=== PATIENT | female | born 1960 | race Caucasian/White ===

== ENCOUNTER → 2021-03-18 09:58 | Outpatient (CLI) | payer OTHER, SELFPAY ==
[2021-03-18 10:42] LABS: Hemoglobin A1C% w Est Avg Glu 9.8 % (4.0-6.0)
[2021-03-18 10:56] LABS: Alanine Aminotransferase 34 IU/L (<35); Albumin Globulin Ratio 1.3 (1.0-2.8); Alkaline Phosphatase 71 U/L (38-126); Aspartate Aminotransferase 27 IU/L (14-36); BUN Creatinine Ratio 25.5 (6-22); Bilirubin Total 0.6 mg/dL (0.2-1.3); Blood Urea Nitrogen 12 mg/dL (7-17); Calcium 9.6 mg/dL (8.4-10.2); Carbon Dioxide 24 mmol/L (22-32); Chloride 104 mmol/L (98-107); Cholesterol 179 mg/dL (140-199); Estimated Glomerular Filt Rate > 60.0 mL/min (>60); Globulin 3.1 g/dL (1.7-4.1); Glucose 182 mg/dL (80-110); HDL Cholesterol 54 mg/dL (40-60); HEMOLYSIS < 15 (0-50); LDL Cholesterol Calculated 79 mg/dL (<100); Potassium 4.5 mmol/L (3.4-5.1); Sodium 136 mmol/L (137-145); Total Protein 7.1 g/dL (6.3-8.2); Triglycerides 230 mg/dL (35-150)
[2021-03-18 10:59] LABS: Creatinine Urine Random 129.9 mg/dL
[2021-03-18 11:01] LABS: Microalbumi Creatinin Ratio Ur 8.4 ug/mg CR (<30); Microalbumin Urine Random 1.1 mg/dL (0-1.6)
[2021-03-18 11:31] LABS: Thyroid Stimulating Hormone < 0.015 uIU/mL (0.47-4.68)
== END ==
PROVIDERS: PCP Family Medicine; Referring Provider Family Medicine; Visit Provider Family Medicine
DX: E11.9 Type 2 diabetes mellitus without complications (principal); E89.0 Postprocedural hypothyroidism
CPT/HCPCS: 36415; 80053; 80061; 82043; 82570; 83036; 84443

== ENCOUNTER → 2021-06-15 08:06 | Outpatient (CLI) | payer OTHER, SELFPAY ==
[2021-06-15 09:20] LABS: Hemoglobin A1C% w Est Avg Glu 10.3 % (4.0-6.0)
[2021-06-15 09:56] LABS: TSH w/ Reflex to FT4 0.28 uIU/mL (0.47-4.68)
[2021-06-15 10:20] LABS: Free T4, Direct Thyroxine 0.89 ng/dL (0.78-2.19)
== END ==
PROVIDERS: PCP Family Medicine; Referring Provider Family Medicine; Visit Provider Family Medicine
DX: E89.0 Postprocedural hypothyroidism (principal); E11.9 Type 2 diabetes mellitus without complications
CPT/HCPCS: 36415; 83036; 84439; 84443

== ENCOUNTER → 2021-09-14 09:36 | Outpatient (CLI) | payer OTHER, SELFPAY ==
[2021-09-14 11:13] LABS: Hemoglobin A1C% w Est Avg Glu 10.2 % (4.0-6.0)
[2021-09-14 11:40] LABS: Thyroid Stimulating Hormone 1.14 uIU/mL (0.47-4.68)
== END ==
PROVIDERS: PCP Family Medicine; Referring Provider Family Medicine; Visit Provider Family Medicine
DX: E03.9 Hypothyroidism, unspecified (principal); E11.9 Type 2 diabetes mellitus without complications
CPT/HCPCS: 36415; 83036; 84443

== ENCOUNTER → 2021-12-14 10:25 | Outpatient (CLI) | payer OTHER, SELFPAY ==
[2021-12-14 12:12] LABS: Hemoglobin A1C% w Est Avg Glu 10.1 % (4.0-6.0)
== END ==
PROVIDERS: PCP Family Medicine; Referring Provider Family Medicine; Visit Provider Family Medicine
DX: E11.9 Type 2 diabetes mellitus without complications (principal)
CPT/HCPCS: 36415; 83036

== ENCOUNTER → 2022-03-18 15:01 | Outpatient (CLI) | payer OTHER, SELFPAY ==
[2022-03-18 15:43] LABS: Hemoglobin A1C% w Est Avg Glu 9.7 % (4.0-6.0)
[2022-03-18 15:51] LABS: Alanine Aminotransferase 33 IU/L (<35); Albumin Globulin Ratio 1.2 (1.0-2.8); Alkaline Phosphatase 84 U/L (38-126); Aspartate Aminotransferase 24 IU/L (14-36); BUN Creatinine Ratio 21.3 (6-22); Bilirubin Total 0.5 mg/dL (0.2-1.3); Blood Urea Nitrogen 13 mg/dL (7-17); Calcium 8.7 mg/dL (8.4-10.2); Carbon Dioxide 25 mmol/L (22-32); Chloride 104 mmol/L (98-107); Cholesterol 184 mg/dL (140-199); Estimated Glomerular Filt Rate > 60 mL/min (>60); Globulin 3.3 g/dL (1.7-4.1); Glucose 304 mg/dL (80-110); HDL Cholesterol 43 mg/dL (40-60); HEMOLYSIS 15 (0-50); LDL Cholesterol Calculated 73 mg/dL (<100); Potassium 4.2 mmol/L (3.4-5.1); Sodium 135 mmol/L (137-145); Total Protein 7.3 g/dL (6.3-8.2); Triglycerides 342 mg/dL (35-150)
[2022-03-18 16:17] LABS: TSH w/ Reflex to FT4 2.03 uIU/mL (0.47-4.68)
== END ==
PROVIDERS: PCP Family Medicine; Referring Provider Family Medicine; Visit Provider Family Medicine
DX: E11.9 Type 2 diabetes mellitus without complications (principal); E03.9 Hypothyroidism, unspecified
CPT/HCPCS: 36415; 80053; 80061; 83036; 84443

== ENCOUNTER → 2022-03-22 09:47 | Outpatient (CLI) | payer OTHER, SELFPAY ==
[2022-03-22 10:26] LABS: Creatinine Urine Random 50.6 mg/dL
[2022-03-22 10:31] LABS: Microalbumin Urine Random < 0.6 mg/dL (0-1.6)
== END ==
PROVIDERS: PCP Family Medicine; Referring Provider Family Medicine; Visit Provider Family Medicine
DX: E11.9 Type 2 diabetes mellitus without complications (principal)
CPT/HCPCS: 82043; 82570

== ENCOUNTER → 2022-06-17 08:57 | Outpatient (CLI) | payer OTHER, SELFPAY ==
[2022-06-17 11:38] LABS: Hemoglobin A1C% w Est Avg Glu 8.4 % (4.0-6.0)
== END ==
PROVIDERS: PCP Family Medicine; Referring Provider Family Medicine; Visit Provider Family Medicine
DX: E11.9 Type 2 diabetes mellitus without complications (principal)
CPT/HCPCS: 36415; 83036

== ENCOUNTER → 2022-11-22 08:40 | Outpatient (CLI) | payer OTHER, SELFPAY ==
[2022-11-23 06:37] LABS: x Labcorp Estim. Avg Glu (eAG) 206 mg/dL (.); x Labcorp Hemoglobin A1c 8.8 % (4.8-5.6)
== END ==
PROVIDERS: PCP Family Medicine; Referring Provider Family Medicine; Visit Provider Family Medicine
DX: E11.9 Type 2 diabetes mellitus without complications (principal)
CPT/HCPCS: 36415; 83036

== ENCOUNTER → 2023-03-21 08:18 | Outpatient (CLI) | payer OTHER, SELFPAY ==
[2023-03-21 09:14] LABS: Alanine Aminotransferase 29 IU/L (<35); Albumin 4.2 g/dL (3.5-5.0); Albumin Globulin Ratio 1.4 (1.0-2.8); Alkaline Phosphatase 58 U/L (38-126); Aspartate Aminotransferase 26 IU/L (14-36); BUN Creatinine Ratio 28.3 (6-22); Bilirubin Total 0.8 mg/dL (0.2-1.3); Blood Urea Nitrogen 15 mg/dL (7-17); Calcium 9.2 mg/dL (8.4-10.2); Carbon Dioxide 23 mmol/L (22-32); Chloride 105 mmol/L (98-107); Cholesterol 212 mg/dL (140-199); Estimated Glomerular Filt Rate > 60 mL/min (>60); Glucose 144 mg/dL (80-110); HDL Cholesterol 52 mg/dL (40-60); HEMOLYSIS < 15 (0-50); LDL Cholesterol Calculated 121 mg/dL (<100); Potassium 4.1 mmol/L (3.4-5.1); Sodium 136 mmol/L (137-145); Total Protein 7.2 g/dL (6.3-8.2); Triglycerides 195 mg/dL (35-150)
[2023-03-21 10:04] LABS: Microalbumin Urine Random 0.8 mg/dL (0-1.6)
[2023-03-21 10:09] LABS: Microalbumi Creatinin Ratio Ur 7.1 ug/mg CR (<30)
[2023-03-22 04:24] LABS: x Labcorp Estim. Avg Glu (eAG) 177 mg/dL (.); x Labcorp Hemoglobin A1c 7.8 % (4.8-5.6)
== END ==
PROVIDERS: PCP Family Medicine; Referring Provider Family Medicine; Visit Provider Family Medicine
DX: E11.9 Type 2 diabetes mellitus without complications (principal); E89.0 Postprocedural hypothyroidism; Z79.899 Other long term (current) drug therapy
CPT/HCPCS: 36415; 80053; 80061; 82043; 82570; 83036

== ENCOUNTER → 2023-06-16 08:49 | Outpatient (CLI) | payer SELFPAY ==
[2023-06-16 10:19] LABS: Hemoglobin A1C% w Est Avg Glu 9.3 % (4.0-6.0)
[2023-06-16 11:11] LABS: TSH w/ Reflex to FT4 1.29 uIU/mL (0.47-4.68)
== END ==
PROVIDERS: PCP Family Medicine; Referring Provider Family Medicine; Visit Provider Family Medicine
DX: E03.9 Hypothyroidism, unspecified (principal); E11.9 Type 2 diabetes mellitus without complications
CPT/HCPCS: 36415; 83036; 84443

== ENCOUNTER → 2024-03-26 09:08 | Outpatient (CLI) | payer MEDICARE, OTHER, SELFPAY ==
[2024-03-26 09:46] LABS: Add Manual Diff / Slide Review NO; Basophils Absolute Auto 100 /uL (0-100); Basophils Percent Auto 1.2 % (0-2); Eosinophils Absolute Auto 300 /uL (0-450); Eosinophils Percent Auto 4.6 % (2-4); Hematocrit 46.4 % (36-46); Hemoglobin 15.9 g/dL (12.0-16.0); Lymphocytes Absolute Auto 2300 /uL (1100-4500); Lymphocytes Percent Auto 36.7 % (25-40); Mean Corpuscular HGB Conc 34.1 % (30-36); Mean Corpuscular Hemoglobin 29.3 PG (26-34); Mean Corpuscular Volume 85.8 fL (80-100); Monocytes Absolute Auto 500 /uL (0-900); Monocytes Percent Auto 8.7 % (3-14); Neutrophils Absolute Auto 3000 /uL (1500-7000); Neutrophils Percent Auto 48.8 % (50-75); Platelet Count 282 X10^3/uL (150-400); Red Blood Cell Count 5.41 X10^6/uL (4.0-5.2); Red Cell Distribution Width 13.4 % (11.6-14.8); White Blood Cell Count 6.1 X10^3/uL (4.5-11.0)
[2024-03-26 10:25] LABS: Alanine Aminotransferase 25 IU/L (<35); Albumin Globulin Ratio 1.3 (1.0-2.8); Alkaline Phosphatase 75 U/L (38-126); Aspartate Aminotransferase 21 IU/L (14-36); BUN Creatinine Ratio 42.3 (6-22); Bilirubin Total 0.6 mg/dL (0.2-1.3); Blood Urea Nitrogen 22 mg/dL (7-17); Calcium 9.3 mg/dL (8.4-10.2); Carbon Dioxide 20 mmol/L (22-32); Chloride 107 mmol/L (98-107); Cholesterol 203 mg/dL (140-199); Estimated Glomerular Filt Rate > 60 mL/min (>60); Globulin 3.1 g/dL (1.7-4.1); Glucose 199 mg/dL (80-110); HDL Cholesterol 53 mg/dL (40-60); HEMOLYSIS < 15 (0-50); LDL Cholesterol Calculated 92 mg/dL (<100); Potassium 4.5 mmol/L (3.4-5.1); Sodium 135 mmol/L (137-145); Total Protein 7.1 g/dL (6.3-8.2); Triglycerides 291 mg/dL (35-150)
[2024-03-26 10:53] LABS: Ferritin 28 ng/mL (11-264)
[2024-03-26 13:04] LABS: Hemoglobin A1C% w Est Avg Glu 9.3 % (4.0-6.0)
[2024-03-26 13:05] LABS: Iron 88 ug/dL (37-170)
[2024-03-26 13:33] LABS: Creatinine Urine Random 29.16 mg/dL
[2024-03-26 13:38] LABS: Microalbumin Urine Random < 0.6 mg/dL (0-1.6)
[2024-03-26 13:44] LABS: Thyroid Stimulating Hormone < 0.015 uIU/mL (0.47-4.68)
== END ==
LOC: LAB 09:09
PROVIDERS: PCP Family Medicine; Referring Provider Family Medicine; Visit Provider Family Medicine
DX: L65.9 Nonscarring hair loss, unspecified (principal); E11.9 Type 2 diabetes mellitus without complications; E03.9 Hypothyroidism, unspecified
CPT/HCPCS: 36415; 80053; 80061; 82043; 82570; 82728; 83036; 83540; 84443; 85025

== ENCOUNTER → 2024-09-21 08:31 | Outpatient (CLI) | payer MEDICARE, OTHER, SELFPAY ==
[2024-09-21 10:59] LABS: Thyroid Stimulating Hormone 0.707 uIU/mL (0.47-4.68)
== END ==
LOC: LAB 08:32
PROVIDERS: PCP Family Medicine; Referring Provider Family Medicine; Visit Provider Family Medicine
DX: E03.9 Hypothyroidism, unspecified (principal)
CPT/HCPCS: 36415; 84443

== ENCOUNTER → 2024-12-17 10:00 | Outpatient (CLI) | payer MEDICARE, OTHER, SELFPAY ==
[2024-12-17 11:19] LABS: Hemoglobin A1C% w Est Avg Glu 7.8 % (4.0-6.0)
[2024-12-17 11:27] LABS: HEMOLYSIS < 15 (0-50); Iron 117 ug/dL (37-170)
[2024-12-17 11:31] LABS: Alanine Aminotransferase 29 IU/L (<35); Albumin 4.4 g/dL (3.5-5.0); Albumin Globulin Ratio 1.6 (1.0-2.8); Alkaline Phosphatase 60 U/L (38-126); Aspartate Aminotransferase 26 IU/L (14-36); BUN Creatinine Ratio 31.1 (6-22); Bilirubin Total 0.9 mg/dL (0.2-1.3); Blood Urea Nitrogen 19 mg/dL (7-17); Calcium 9.8 mg/dL (8.4-10.2); Carbon Dioxide 25 mmol/L (22-32); Chloride 104 mmol/L (98-107); Cholesterol 231 mg/dL (140-199); Estimated Glomerular Filt Rate > 60 mL/min (>60); Globulin 2.8 g/dL (1.7-4.1); Glucose 128 mg/dL (70-99); HDL Cholesterol 60 mg/dL (40-60); HEMOLYSIS < 15 (0-50); LDL Cholesterol Calculated 134 mg/dL (<100); Potassium 4.3 mmol/L (3.4-5.1); Sodium 137 mmol/L (137-145); Total Protein 7.2 g/dL (6.3-8.2); Triglycerides 186 mg/dL (35-150)
[2024-12-17 11:40] LABS: Percent Iron Saturation 31 % (15-50); Total Iron Binding Capacity 375 ug/dL (265-497); Transferrin 332 mg/dL (206-381)
[2024-12-17 11:53] LABS: Add Manual Diff / Slide Review NO; Basophils Absolute Auto 100 /uL (0-100); Basophils Percent Auto 1.1 % (0-2); Eosinophils Absolute Auto 400 /uL (0-450); Eosinophils Percent Auto 5.3 % (2-4); Hematocrit 48.6 % (36-46); Hemoglobin 17.1 g/dL (12.0-16.0); Lymphocytes Absolute Auto 2600 /uL (1100-4500); Lymphocytes Percent Auto 37.4 % (25-40); Mean Corpuscular HGB Conc 35.2 % (30-36); Mean Corpuscular Hemoglobin 30.1 PG (26-34); Mean Corpuscular Volume 85.4 fL (80-100); Monocytes Absolute Auto 500 /uL (0-900); Monocytes Percent Auto 7.3 % (3-14); Neutrophils Absolute Auto 3400 /uL (1500-7000); Neutrophils Percent Auto 48.9 % (50-75); Platelet Count 288 X10^3/uL (150-400); Red Blood Cell Count 5.69 X10^6/uL (4.0-5.2); Red Cell Distribution Width 13.8 % (11.6-14.8); White Blood Cell Count 6.9 X10^3/uL (4.5-11.0)
[2024-12-17 11:59] LABS: Creatinine Urine Random 64.63 mg/dL
[2024-12-17 12:03] LABS: Microalbumin Urine Random < 0.6 mg/dL (0-1.6)
[2024-12-17 12:03] LABS: Ferritin 45 ng/mL (11-264)
== END ==
PROVIDERS: PCP Family Medicine; Referring Provider Family Medicine; Visit Provider Family Medicine
DX: E11.9 Type 2 diabetes mellitus without complications (principal); L65.9 Nonscarring hair loss, unspecified
CPT/HCPCS: 36415; 80053; 80061; 82043; 82570; 82728; 83036; 83540; 83550; 85025

== ENCOUNTER → 2025-03-15 09:22 | Outpatient (CLI) | payer MEDICARE, OTHER, SELFPAY ==
[2025-03-15 10:40] LABS: Add Manual Diff / Slide Review NO; Hematocrit 44.8 % (36-46); Hemoglobin 15.8 g/dL (12.0-16.0); Lymphocytes Absolute Auto 2500 /uL (1100-4500); Mean Corpuscular HGB Conc 35.3 % (30-36); Mean Corpuscular Hemoglobin 30.2 PG (26-34); Mean Corpuscular Volume 85.6 fL (80-100); Platelet Count 296 X10^3/uL (150-400)
[2025-03-15 10:58] LABS: Hemoglobin A1C% w Est Avg Glu 7.9 % (4.0-6.0)
[2025-03-15 11:11] LABS: Blood Urea Nitrogen 17 mg/dL (7-17); Calcium 8.9 mg/dL (8.4-10.2); Carbon Dioxide 25 mmol/L (22-32); Chloride 102 mmol/L (98-107); Cholesterol 231 mg/dL (140-199); Estimated Glomerular Filt Rate > 60 mL/min (>60); Glucose 163 mg/dL (70-99); HDL Cholesterol 57 mg/dL (40-60); HEMOLYSIS < 15 (0-50); Potassium 4.1 mmol/L (3.4-5.1); Sodium 136 mmol/L (137-145); Triglycerides 187 mg/dL (35-150)
== END ==
PROVIDERS: PCP Family Medicine; Referring Provider Family Medicine; Visit Provider Family Medicine
DX: E11.9 Type 2 diabetes mellitus without complications (principal); D58.2 Other hemoglobinopathies
CPT/HCPCS: 80048; 80061; 83036; 85025